=== PATIENT | female | born 1940 | race Caucasian/White ===

== ENCOUNTER 2016-09-23 22:57 | Emergency (ER) | payer OTHER, BC ==
[~2016-09-23] VITALS: Ht 152.4 cm; Wt 42.6 kg
[2016-09-24 01:23] VITALS: BP 127/93
== END 2016-09-24 01:23 | disposition home or self-care (01) ==
LOC: ED 22:57
DX: S16.1XXA Strain of muscle, fascia and tendon at neck level, initial encounter (principal); S00.01XA Abrasion of scalp, initial encounter; G20 Parkinson's disease; Z79.899 Other long term (current) drug therapy; W01.0XXA Fall on same level from slipping, tripping and stumbling without subsequent striking against object, initial encounter; Y93.01 Activity, walking, marching and hiking; Y92.89 Other specified places as the place of occurrence of the external cause; Y99.8 Other external cause status

== ENCOUNTER 2016-10-11 09:55 | Emergency (ER) | payer OTHER, BC ==
[~2016-10-11] VITALS: Ht 160 cm; Wt 43.5 kg
[2016-10-11 12:46] VITALS: BP 111/68
== END 2016-10-11 12:46 | disposition home or self-care (01) ==
LOC: ED 09:55
DX: S00.83XA Contusion of other part of head, initial encounter (principal); G20 Parkinson's disease; W01.0XXA Fall on same level from slipping, tripping and stumbling without subsequent striking against object, initial encounter; Y93.89 Activity, other specified; Y99.8 Other external cause status; Y92.89 Other specified places as the place of occurrence of the external cause

== ENCOUNTER 2017-02-20 10:13 | Emergency (ER) | payer OTHER, BC ==
[~2017-02-20] VITALS: Ht 157.5 cm; Wt 45.4 kg
[2017-02-20 10:33] VITALS: Ht 157.5 cm; Wt 45.4 kg
[2017-02-20 12:33] VITALS: BP 152/78
== END 2017-02-20 12:33 | disposition home or self-care (01) ==
LOC: ED 10:13
DX: S01.81XA Laceration without foreign body of other part of head, initial encounter (principal); G20 Parkinson's disease; W01.0XXA Fall on same level from slipping, tripping and stumbling without subsequent striking against object, initial encounter; Y93.89 Activity, other specified; Y99.8 Other external cause status; Y92.002 Bathroom of unspecified non-institutional (private) residence as the place of occurrence of the external cause
CPT/HCPCS: 90715; J2001

== ENCOUNTER 2017-02-27 10:50 | Emergency (ER) | payer OTHER, BC ==
[2017-02-27 12:15] VITALS: BP 116/58
== END 2017-02-27 12:15 | disposition home or self-care (01) ==
LOC: ED 10:50
DX: S01.112D Laceration without foreign body of left eyelid and periocular area, subsequent encounter (principal); G20 Parkinson's disease; W19.XXXD Unspecified fall, subsequent encounter

== ENCOUNTER 2017-06-13 12:12 | Emergency (ER) | payer OTHER, BC ==
[~2017-06-13] VITALS: Ht 152.4 cm; Wt 43.1 kg
[2017-06-13 12:30] VITALS: Ht 152.4 cm; Wt 43.1 kg
[2017-06-13 16:56] VITALS: BP 101/60
== END 2017-06-13 16:56 | disposition home or self-care (01) ==
LOC: ED 12:12
DX: S01.01XA Laceration without foreign body of scalp, initial encounter (principal); S70.02XA Contusion of left hip, initial encounter; W01.0XXA Fall on same level from slipping, tripping and stumbling without subsequent striking against object, initial encounter; Y93.89 Activity, other specified; Y92.89 Other specified places as the place of occurrence of the external cause; Y99.8 Other external cause status
CPT/HCPCS: J2001

== ENCOUNTER 2017-06-13 20:34 | Emergency (ER) | payer OTHER, BC ==
[~2017-06-13] VITALS: Ht 152.4 cm; Wt 44.5 kg
[2017-06-13 20:38] VITALS: Ht 152.4 cm; Wt 44.5 kg
[2017-06-13 21:52] VITALS: BP 135/69
== END 2017-06-13 21:52 | disposition home or self-care (01) ==
LOC: ED 20:34
DX: K94.29 Other complications of gastrostomy (principal)
CPT/HCPCS: Q0092; Q9966

== ENCOUNTER 2017-06-14 15:09 | Emergency (ER) | payer OTHER, BC ==
[~2017-06-14] VITALS: Ht 152.4 cm; Wt 44.0 kg
[2017-06-14 15:15] VITALS: Ht 152.4 cm; Wt 44.0 kg
[2017-06-14 16:15] VITALS: BP 140/49
== END 2017-06-14 16:17 | disposition home or self-care (01) ==
LOC: ED 15:09
DX: K94.23 Gastrostomy malfunction (principal)

== ENCOUNTER 2017-11-11 16:48 | Emergency (ER) | payer OTHER, BC ==
[~2017-11-11] VITALS: Ht 152.4 cm; Wt 45.4 kg
[2017-11-11 16:58] VITALS: Ht 152.4 cm; Wt 45.4 kg
[2017-11-11 19:09] VITALS: BP 122/68
== END 2017-11-11 19:10 | disposition home or self-care (01) ==
LOC: ED 16:48
DX: S01.01XA Laceration without foreign body of scalp, initial encounter (principal); K21.9 Gastro-esophageal reflux disease without esophagitis; M81.0 Age-related osteoporosis without current pathological fracture; G20 Parkinson's disease; W18.11XA Fall from or off toilet without subsequent striking against object, initial encounter; Y93.E1 Activity, personal bathing and showering; Y92.002 Bathroom of unspecified non-institutional (private) residence as the place of occurrence of the external cause; Y99.8 Other external cause status

== ENCOUNTER 2017-11-13 15:05 | Emergency (ER) | payer OTHER, BC ==
[~2017-11-13] VITALS: Ht 152.4 cm; Wt 45.4 kg
[2017-11-13 15:29] VITALS: BP 124/54; Ht 152.4 cm; Wt 45.4 kg
== END 2017-11-13 17:02 | disposition left against medical advice (07) ==
LOC: ED 15:05
DX: Z53.21 Procedure and treatment not carried out due to patient leaving prior to being seen by health care provider (principal)

== ENCOUNTER 2018-01-18 20:00 | Emergency (ER) | payer OTHER, BC ==
[~2018-01-18] VITALS: Ht 152.4 cm; Wt 45.4 kg
[2018-01-18 20:06] VITALS: Ht 152.4 cm; Wt 45.4 kg
[2018-01-18 20:55] LABS: BASOPHIL % 0.3 % (0-2); PLATELET COUNT 246 x10^3mcL (130-400); RED CELL DISTRIBUTION WIDTH 14.9 % (11.5-14.5)
[2018-01-18 21:09] LABS: ALKALINE PHOSPHATASE 103 U/L (46-116); ALT/SGPT 11 U/L (14-59); AST/SGOT 27 U/L (15-37); BILIRUBIN TOTAL 0.4 mg/dL (0.20-1.00); CALCIUM 8.5 mg/dL (8.5-10.1); CARBON DIOXIDE 27.1 mmol/L (21-32); CHLORIDE SERUM 113 mmol/L (98-107); CREATININE SERUM 0.8 mg/dL (0.6-1.0); GLUCOSE SERUM 133 mg/dL (74-106); LIPASE 59 IU/L (73-393); POTASSIUM SERUM 3.5 mmol/L (3.5-5.1); SODIUM SERUM 150 mmol/L (136-145)
[2018-01-18 21:10] LABS: ALBUMIN 3.2 g/dL (3.4-5.0)
[2018-01-18 22:18] VITALS: BP 141/83
== END 2018-01-18 22:19 | disposition home or self-care (01) ==
LOC: ED 20:00
PROVIDERS: Emergency Medicine
DX: E86.0 Dehydration (principal); M79.10 Myalgia, unspecified site; K21.9 Gastro-esophageal reflux disease without esophagitis; M19.90 Unspecified osteoarthritis, unspecified site; E03.9 Hypothyroidism, unspecified; Z98.890 Other specified postprocedural states
CPT/HCPCS: J1885; J2405; J7030

== ENCOUNTER 2018-04-14 21:55 | Emergency (ER) | payer OTHER, BC ==
[~2018-04-14] VITALS: Ht 152.4 cm; Wt 47.6 kg
[2018-04-14 22:36] VITALS: Ht 152.4 cm; Wt 47.6 kg
[2018-04-15 00:04] VITALS: BP 149/65
== END 2018-04-15 00:04 | disposition home or self-care (01) ==
LOC: ED 21:55
DX: K94.23 Gastrostomy malfunction (principal)
CPT/HCPCS: J3010; Q0092; Q9967